=== PATIENT | female | born 1945 | race Caucasian/White ===

== ENCOUNTER 2016-05-14 10:34 | Day surgery (SDC) | payer MEDICARE, BC ==
[2016-05-11 16:02] VITALS: BMI 35.2
[2016-05-14 11:12] VITALS: RESP 16; TEMP 98.5
[2016-05-14] MEDS ORDERED: LACTATED RINGERS 1,000 ML IV ONE (11:27)
[2016-05-14] MEDS ORDERED: LIDOCAINE 1% 20 ML VIAL (10MG/ML) FOR IV START INTRADERMA ONE (11:28)
[2016-05-14] MEDS ORDERED: PROPOFOL 10 MG/ML 20 ML VIAL IV ONE (11:36)
--- NOTE | 2016-05-14 11:55 | P.PCN ---
Date of Procedure: 05/14/16 Procedure(s) Performed: Brief history: Patient is a pleasant 70-year-old white female, scheduled for an elective upper endoscopy as well as colonoscopy as a part of evaluation of epigastric pain, right lower quadrant abdominal pain and change in bowel habits for the last several months duration. Procedure performed: Esophagogastroduodenoscopy with biopsy Colonoscopy Preoperative diagnosis: Epigastric pain Right lower quadrant abdominal pain and change in bowel habits Anesthesia: MAC Procedure: After informed consent was obtained from the patient was brought into the endoscopy unit and IV conscious sedation was administered by anesthesia under continuous monitoring. Initially upper endoscopy was done. The Olympus GF 160 video endoscope was inserted inserted into the mouth and esophagus intubated without any difficulty and was gradually advanced into the stomach and duodenum and carefully examined. The bulb and second part of the duodenum appeared normal. The scope was then withdrawn into the stomach adequately insufflated with air and upon careful examination the antrum had mild gastritis and biopsies were done from this area. There are multiple small gastric polyps noted the body of the stomach which were also biopsied. The rest of the body, cardia and fundus appeared normal. The scope was then withdrawn into the esophagus. The GE junction was located at 40 cm to the incisors. It appeared regular with no erythema erosions or ulcerations. Rest of the esophagus appeared normal. Patient tolerated the procedure well. At this time the patient continued to remain sedation. Initial digital rectal examination was normal. Olympus CF 160 video colonoscope was then inserted into the rectum and gradually advanced to the cecum without any difficulty. Careful examination was performed as the scope was gradually being withdrawn. The prep was excellent. The cecum, ascending colon, transverse colon, descending colon, sigmoid colon and rectum appeared normal. scattered sigmoid diverticulosis seen. Retroflexion was performed in the rectum and no lesions were noted. Patient tolerated the procedure well. Impression: 1. Upper endoscopy revealed mild antral gastritis and multiple small gastric polyps 2. Colonoscopy revealed scattered small diverticulosis, no evidence of colorectal neoplasia. Recommendations: Findings of this examination were discussed with the patient as well as[ her family. She was advised to follow with the biopsy results. She will follow up in office in 2-3 weeks. She can have a repeat screening colonoscopy in 10 years.
[2016-05-14 12:35] VITALS: BP 106/56; PULSE 72
--- NOTE | 2016-05-18 19:56 | CDI ---
Pt Name: Anny Good CONFIDENTIAL MR#: [id number] Adm Date: 05/14/2016 10:34:00 AM Printed:05/18/2016 Physician Documentation Request Page 1 of 1 ICD-10-CM Ready Physicians Documentation Request Patient: Anny Good EPI: [id number] Account: [id number] Payer: MEDICARE Facility: [facility] Location: - Admit Date: 05/14/2016 10:34:00 AM Query Send By: Lala Vázquez Phone #: Ext. Communication Date: 05/18/2016 7:51:00 PM Clarification Outpatient By submitting this query, we are merely seeking further clarification of documentation to accurately reflect all conditions that you are monitoring, evaluating, treating or that extend the hospitalization or utilize additional resources of care. Please utilize your independent clinical judgment when addressing the question(s) below. Dear Doctor Tracey Peralta, The patients Clinical Indicators include: see below Documentation Clarification OP Your procedure note states "IV conscious sedation", yet the anesthesia record indicates GA/Unconscious sedation. This is a conflict. Which type of sedation was actually used? Please issue an addendum to your op report. Thank you. PLEASE DOCUMENT ANY ADDITIONAL DIAGNOSES AND/OR SPECIFICITY IN THE PROGRESS NOTES AND/OR DISCHARGE SUMMARY. Agreed & documented Unable to determine/unknown Disagree with the above request Need to discuss MTDD
--- NOTE | 2016-05-22 14:32 | PCN ---
ADDENDUM TO PROCEDURE NOTE: General anesthesia was utilized instead of IV conscious sedation.
== END 2016-05-14 12:51 | disposition home or self-care (01) ==
LOC: ORWHC2ENDO 10:34
PROVIDERS: ATTEND Internal Medicine Gastroenterology
DX: K29.50 Unspecified chronic gastritis without bleeding (principal); K31.7 Polyp of stomach and duodenum; K57.30 Diverticulosis of large intestine without perforation or abscess without bleeding; R19.4 Change in bowel habit; K21.9 Gastro-esophageal reflux disease without esophagitis; G47.33 Obstructive sleep apnea (adult) (pediatric); E78.5 Hyperlipidemia, unspecified; R56.9 Unspecified convulsions; F41.9 Anxiety disorder, unspecified; Z79.82 Long term (current) use of aspirin; Z79.899 Other long term (current) drug therapy; Z88.5 Allergy status to narcotic agent; Z88.2 Allergy status to sulfonamides; Z88.8 Allergy status to other drugs, medicaments and biological substances
CPT/HCPCS: 45378; 88305; 88342; 43239; J2704

== ENCOUNTER → 2016-06-09 | Outpatient (CLI) | payer MEDICARE, BC ==
--- NOTE | 2016-06-10 07:39 | MM ---
Reason for exam: screening (asymptomatic). Last mammogram was performed 1 year ago. History: Patient is postmenopausal. Family history of breast cancer in aunt and premenopausal breast cancer in cousin. Physical Findings: A clinical breast exam by your physician is recommended on an annual basis and results should be correlated with mammographic findings. MG 3D Screening Mammo W/Cad Bilateral CC and MLO view(s) were taken. Prior study comparison: May 28, 2015, bilateral MG 3d screening mammo w/cad. March 30, 2014, bilateral MG screening mammo w CAD. March 27, 2013, bilateral digital screening mammo w/CAD. There are scattered fibroglandular densities. Finding: There are few typically benign round calcifications in both breasts. There is no discrete abnormality. ASSESSMENT: Benign, BI-RAD 2 RECOMMENDATION: Routine screening mammogram of both breasts in 1 year.
== END | disposition home or self-care (01) ==
LOC: RADMAMWWP 10:47
PROVIDERS: ATTEND Obstetrics & Gynecology
DX: Z12.31 Encounter for screening mammogram for malignant neoplasm of breast (principal)
CPT/HCPCS: 77063; G0202

== ENCOUNTER → 2016-06-24 | Outpatient (CLI) | payer MEDICARE, BC ==
--- NOTE | 2016-06-24 13:56 | BD ---
EXAMINATION TYPE: MG DEXA axial skeleton. DATE OF EXAM: 06/24/2016 11:20 AM CLINICAL HISTORY: Height: 60 inches Weight: 180 FRAX RISK QUESTIONS: Alcohol (3 or more units per day): no Family History (Parent hip fracture): no Glucocorticoids (More than 3mos): no (Ex: prednisone, prednisolone, methylprednisolone, dexamethasone, and hydrocortisone). History of Fracture in Adulthood: no Secondary Osteoporosis: 1. Type 1 Diabetes: no 2. Hyperthyroidism: no 3. Menopause before 45: no 4. Malnutrition: no 5. Chronic liver disease: no Rheumatoid Arthritis: no Current Tobacco Use: no RISK FACTORS HISTORY OF: Family History of Osteoporosis: no Drink Alcohol: no Active: yes Diet low in dairy products/other sources of calcium: no Postmenopausal woman: yes Take estrogen and/or progesterone medications: no Lost more than 2 inches in height since high school: no Frequent falls: no Poor Health: no Hyperparathyroidism: no Adrenal Insufficiency: no MEDICATIONS: Prednisone or other steroids: no Thyroid Medications: no Osteoporosis Medications: no Additional Medications: Vitamin D , cholesterol meds , Dilantin Additional 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 Bone mineral density as measured about the Lumbar spine is: ----- L1-L4(G/cm2): 1.187 T Score Values are as follows: ----- L2: -0.2 ----- L3: 0.1 ----- L4: 0.0 ----- L1-L4: 0.1 Bone mineral density has: Decreased -2.0% since study of: 03/27/2013 Bone mineral density about the R hip (g/cm2): 0.885 Bone mineral density about the L hip (g/cm2): 0.874 T Score values are as follows: -----R Neck: -1.1 -----L Neck: -1.2 -----R Intertrochanter: -0.5 -----L Intertrochanter: -0.8 Bone mineral density has: Decreased -1.3% since study of: 03/27/2013 IMPRESSION: Normal (Values between +1 and -1 indicate normal bone mass) Bone density is diminished 2% from 03/27/2013 within the lumbar spine and diminished 1.3% within the b ilateral hips from 2014 NOTE: T-SCORE=SD OF THE YOUNG ADULT MEAN.
== END ==
LOC: RADBDWWP 10:23
PROVIDERS: ATTEND Psychiatry & Neurology Neurology
DX: Z78.0 Asymptomatic menopausal state (principal)
CPT/HCPCS: 77080

== ENCOUNTER → 2017-01-19 | Outpatient (CLI) | payer MEDICARE, BC ==
--- NOTE | 2017-01-19 17:58 | PN ---
PROGRESS NOTE This is an annual check up for a 71-year-old female patient who was diagnosed having symptomatic obstructive sleep apnea. The patient had moderately severe disease with an AHI of 25 and the patient was being treated with a CPAP pressure of 6 cm of water. On today's evaluation the patient is reporting occasional foul-smelling odor from her sinuses. Her humidity level is at 4 on her CPAP machine. No sinus infections. Occasional post nasal drainage. Based on the compliance data she has been using her CPAP every night. Her compliance has been 100%. Average CPAP use is 6.9 hours per night. The patient's leak factor is 28 L/minute. AHI while on treatment is down to 10.7. She has gained around 5 pounds and she used to weigh 178 and currently is up to 183. She is using an AirFit P10 nose pillow. The patient's Herald score is at 3 and she continues to benefit from the treatment. REVIEW OF SYSTEMS: 12-point review of system was done. Positive findings are mentioned above in the history of present illness. PHYSICAL EXAMINATION: Her current vital signs are as follows: Her temperature is 97.8, pulse is 88, respirations 16, BP is 147/69, saturation 96% on room air. Weight is 183, height is 5 feet 0. GENERAL APPEARANCE: Calm, comfortable. Head is atraumatic, normocephalic. NECK: Supple. There is no JVD. No goiter or neck masses. No sinus tenderness or any evidence of discharge or drainage. LUNGS: Clear to auscultation. HEART: Sounds regular rhythm. Normal S1, S2. No S3, S4. No murmurs. ABDOMEN: Soft, nontender. No organomegaly. EXTREMITIES: No edema. No cyanosis or clubbing. NEUROLOGIC: Alert and oriented x3. No focal neurological deficits. PSYCHIATRIC: Negative for anxiety or depression. Skin is negative for any wounds or ulceration. IMPRESSION: 1. Symptomatic obstructive sleep apnea, AHI of 25.8, the patient is currently on CPAP at a pressure of 6. The resulting AHI is down to 10.7, and there is some room for further improvement. 2. Hypersomnia improved. 3. Obesity with interval of 5 pounds weight gain. 4. Foul smelling drainage from the sinuses. PLAN: 1. Recommend nasal saline rinses on a daily basis. Doubt infection at this point. 2. Switch this patient to an auto set mode with a minimum pressure of 4, maximum pressure of 8 and this will allow the patient to get higher CPAP pressures if needed to bring down her AHI further. 3. Continue AirFit P10 nasal pillows. 4. Encourage weight loss. 5. See me back in 6 months for follow up or earlier if needed. MMMARTY / IJN: [id number] /
== END | disposition home or self-care (01) ==
LOC: SLEEP 16:07
PROVIDERS: ATTEND Internal Medicine Critical Care Medicine
DX: G47.33 Obstructive sleep apnea (adult) (pediatric) (principal); E66.9 Obesity, unspecified

== ENCOUNTER → 2017-06-11 | Outpatient (CLI) | payer MEDICARE, BC ==
--- NOTE | 2017-06-15 09:09 | MM ---
Reason for exam: screening (asymptomatic). Last mammogram was performed 1 year ago. History: Patient is postmenopausal. Family history of breast cancer in aunt and premenopausal breast cancer in cousin. Physical Findings: A clinical breast exam by your physician is recommended on an annual basis and results should be correlated with mammographic findings. MG 3D Screening Mammo W/Cad Bilateral CC and MLO view(s) were taken. Prior study comparison: June 09, 2016, bilateral MG 3d screening mammo w/cad. May 28, 2015, bilateral MG 3d screening mammo w/cad. There are scattered fibroglandular densities. No significant changes when compared with prior studies. ASSESSMENT: Negative, BI-RAD 1 RECOMMENDATION: Routine screening mammogram of both breasts in 1 year.
== END | disposition home or self-care (01) ==
LOC: RADMAMWWP 10:48
PROVIDERS: ATTEND Obstetrics & Gynecology
DX: Z12.31 Encounter for screening mammogram for malignant neoplasm of breast (principal); Z80.3 Family history of malignant neoplasm of breast
CPT/HCPCS: 77063; 77067

== ENCOUNTER → 2017-10-20 | Outpatient (CLI) | payer MEDICARE, BC ==
[2017-10-20 10:24] LABS: Basophils % (A) 1 %; Eosinophils % (A) 0 %; HCT 42.9 % (34.0-46.0); HGB 14.4 gm/dL (11.4-16.0); Lymphocytes # (A) 1.9 k/uL (1.0-4.8); Lymphocytes % (A) 48 %; MCH 31.7 pg (25.0-35.0); MCHC 33.6 g/dL (31.0-37.0); MCV 94.4 fL (80.0-100.0); Mean Platelet Volume 8.1; Monocytes # (A) 0.3 k/uL (0-1.0); Monocytes % (A) 7 %; Neutrophils # (A) 1.6 k/uL (1.3-7.7); Neutrophils % (A) 41 %; Platelet Count 184 k/uL (150-450); RBC 4.55 m/uL (3.80-5.40); RDW 12.9 % (11.5-15.5)
[2017-10-20 11:41] LABS: ALT 28 U/L (9-52); AST 19 U/L (14-36); Anion Gap 9 mmol/L; Blood Urea Nitrogen 12 mg/dL (7-17); Carbon Dioxide 28 mmol/L (22-30); Chloride 105 mmol/L (98-107); Glucose 106 mg/dL (74-99); Potassium 4.3 mmol/L (3.5-5.1); Sodium 142 mmol/L (137-145)
[2017-10-20 13:29] LABS: Phenytoin (Dilantin) 23.7 ug/mL
== END | disposition home or self-care (01) ==
LOC: LABWHC1 09:41
PROVIDERS: ATTEND Psychiatry & Neurology Neurology
DX: G40.909 Epilepsy, unspecified, not intractable, without status epilepticus (principal); T42.0X5A Adverse effect of hydantoin derivatives, initial encounter
CPT/HCPCS: 36415; 80048; 80185; 84450; 84460; 85025

== ENCOUNTER → 2017-10-25 | Outpatient (CLI) | payer MEDICARE, BC ==
[2017-10-26 03:24] LABS: Phenytoin (Dilantin) Free 1.4 ug/mL (0.8-2.0)
== END | disposition home or self-care (01) ==
LOC: LABWHC1 10:23
PROVIDERS: ATTEND Psychiatry & Neurology Neurology
DX: Z51.81 Encounter for therapeutic drug level monitoring (principal); G40.909 Epilepsy, unspecified, not intractable, without status epilepticus
CPT/HCPCS: 36415; 80168; 80185; 80186

== ENCOUNTER → 2017-11-08 | Outpatient (CLI) | payer MEDICARE, BC ==
[2017-11-08 10:08] LABS: Basophils % (A) 1 %; Eosinophils % (A) 0 %; HCT 41.8 % (34.0-46.0); HGB 13.8 gm/dL (11.4-16.0); Lymphocytes # (A) 1.8 k/uL (1.0-4.8); Lymphocytes % (A) 45 %; MCHC 33.1 g/dL (31.0-37.0); MCV 93.5 fL (80.0-100.0); Mean Platelet Volume 8.1; Monocytes # (A) 0.2 k/uL (0-1.0); Monocytes % (A) 5 %; Neutrophils # (A) 1.9 k/uL (1.3-7.7); Neutrophils % (A) 47 %; Platelet Count 183 k/uL (150-450); RBC 4.47 m/uL (3.80-5.40); RDW 12.8 % (11.5-15.5); WBC 4.1 k/uL (3.8-10.6)
[2017-11-08 10:26] LABS: ALT 30 U/L (9-52); AST 20 U/L (14-36); Anion Gap 10 mmol/L; Blood Urea Nitrogen 11 mg/dL (7-17); Calcium 9.3 mg/dL (8.4-10.2); Carbon Dioxide 25 mmol/L (22-30); Chloride 106 mmol/L (98-107); Glucose 159 mg/dL (74-99); Phenytoin (Dilantin) 7.7 ug/mL; Potassium 3.8 mmol/L (3.5-5.1); Sodium 141 mmol/L (137-145)
== END | disposition home or self-care (01) ==
LOC: LABWHC1 09:29
PROVIDERS: ATTEND Psychiatry & Neurology Neurology
DX: G40.909 Epilepsy, unspecified, not intractable, without status epilepticus (principal); T42.0X5A Adverse effect of hydantoin derivatives, initial encounter
CPT/HCPCS: 36415; 80048; 80185; 84450; 84460; 85025

== ENCOUNTER → 2018-02-10 | Outpatient (CLI) | payer MEDICARE, BC | END | disposition home or self-care (01) | LOC: LABWHC1 09:56 | PROVIDERS: ATTEND Psychiatry & Neurology Neurology | DX: G40.909 Epilepsy, unspecified, not intractable, without status epilepticus (principal) | CPT/HCPCS: 36415; 80185; 80186 ==

== ENCOUNTER → 2018-07-22 | Outpatient (CLI) | payer MEDICARE, BC ==
--- NOTE | 2018-07-22 15:12 | BD ---
EXAMINATION TYPE: Axial Bone Density DATE OF EXAM: 07/22/2018 COMPARISON: 06/24/2016 CLINICAL HISTORY: Height: 60 IN Weight: 185 LBS RISK FACTORS HISTORY OF: Active: YES Postmenopausal woman: AGE 54 Take estrogen and/or progesterone medications: NOT NOW How long: AGE 49-52 MEDICATIONS: Additional Medications: VIT D, DILANTIN, ETHOSUXIMIDE, SERTRALINE, ROSUVASTATIN, LORAZEPAM, COQ10,OME PRAZOLE, ASPIRIN, EXAM MEASUREMENTS: Bone mineral densitometry was performed using the [employer] System. Bone mineral density as measured about the Lumbar spine is: ----- L1-L4(G/cm2): 1.166 T Score Values are as follows: ----- L2: 0.0 ----- L3: -0.3 ----- L4: -0.4 ----- L1-L4: -0.1 Bone mineral density has: Decreased -1.9% since study of: 06/24/2016 Bone mineral density about the R hip (g/cm2): 0.881 Bone mineral density about the L hip (g/cm2): 0.842 T Score values are as follows: -----R Neck: -1.1 -----L Neck: -1.4 -----R Total: -0.1 -----L Total: -0.3 Bone mineral density has: Increased 0.3% since study of: 06/24/2016 IMPRESSION: Osteopenia (T Score between -2.5 and -1). There is slightly increased risk of fracture and the patient may be considered for treatment. Re-Screen 2-5 years. NOTE: T-SCORE=SD OF THE YOUNG ADULT MEAN.
--- NOTE | 2018-07-26 11:22 | MM ---
Reason for exam: screening (asymptomatic). Last mammogram was performed 1 year and 1 month ago. History: Patient is postmenopausal. Family history of breast cancer in aunt and premenopausal breast cancer in cousin. Physical Findings: A clinical breast exam by your physician is recommended on an annual basis and results should be correlated with mammographic findings. MG 3D Screening Mammo W/Cad Bilateral CC and MLO view(s) were taken. Prior study comparison: June 11, 2017, bilateral MG 3d screening mammo w/cad. June 09, 2016, bilateral MG 3d screening mammo w/cad. There are benign appearing round calcifications bilaterally. There is chronic nodularity in the right breast. There is no discrete abnormality. ASSESSMENT: Benign, BI-RAD 2 RECOMMENDATION: Routine screening mammogram of both breasts in 1 year.
== END | disposition home or self-care (01) ==
LOC: RADMAMWWP 10:12
PROVIDERS: ATTEND Obstetrics & Gynecology
DX: Z12.31 Encounter for screening mammogram for malignant neoplasm of breast (principal); M85.851 Other specified disorders of bone density and structure, right thigh; M85.852 Other specified disorders of bone density and structure, left thigh
CPT/HCPCS: 77063; 77067; 77080

== ENCOUNTER → 2019-09-19 | Outpatient (CLI) | payer MEDICARE, BC ==
--- NOTE | 2019-09-20 08:41 | MM ---
Reason for exam: screening (asymptomatic). Last mammogram was performed 1 year and 2 months ago. History: Patient is postmenopausal and history of other cancer. Family history of breast cancer in aunt and premenopausal breast cancer in cousin. Took hormonal contraceptives for 1 month. Took estrogen for 3 years. Took progesterone for 3 years. Physical Findings: A clinical breast exam by your physician is recommended on an annual basis and results should be correlated with mammographic findings. MG 3D Screening Mammo W/Cad Bilateral CC and MLO view(s) were taken. Prior study comparison: July 22, 2018, bilateral MG 3d screening mammo w/cad. June 11, 2017, bilateral MG 3d screening mammo w/cad. There are scattered fibroglandular densities. There are benign appearing round calcifications bilaterally. There is no discrete abnormality. Right skin lesion redemonstrated. ASSESSMENT: Benign, BI-RAD 2 RECOMMENDATION: Routine screening mammogram of both breasts in 1 year.
== END | disposition home or self-care (01) ==
LOC: RADMAMWWP 10:55
PROVIDERS: ATTEND Obstetrics & Gynecology
DX: Z12.31 Encounter for screening mammogram for malignant neoplasm of breast (principal)
CPT/HCPCS: 77063; 77067

== ENCOUNTER → 2020-10-28 | Outpatient (CLI) | payer MEDICARE, BC ==
--- NOTE | 2020-10-28 14:05 | BD ---
EXAMINATION TYPE: Axial Bone Density DATE OF EXAM: 10/28/2020 COMPARISON: 07/22/2018 CLINICAL HISTORY: Height: 59.5 IN Weight: 193 LBS RISK FACTORS HISTORY OF: Active: MODERATE Postmenopausal woman: AGE 55 Take estrogen and/or progesterone medications: NOT NOW AGE 50-53 MEDICATIONS: Additional Medications: VIT D, DILANTIN, EPILEPSY MEDS, CRESTOR, CHOLESTEROL MEDS, ANXIETY MEDS, AMBI EN, ASPIRIN, EXAM MEASUREMENTS: Bone mineral densitometry was performed using the [employer] System. Bone mineral density as measured about the Lumbar spine is: ----- L1-L4(G/cm2): 1.185 T Score Values are as follows: ----- L2: 0.2 ----- L3: -0.1 ----- L4: -0.4 ----- L1-L4: 0.0 Bone mineral density has: Increased 1.0% since study of: 07/22/2018 Bone mineral density about the R hip (g/cm2): 0.886 Bone mineral density about the L hip (g/cm2): 0.937 T Score values are as follows: -----R Neck: -1.1 -----L Neck: -0.7 -----R Total: -0.2 -----L Total: -0.1 Bone mineral density has: Increased 0.6% since study of: 07/22/2018 IMPRESSION: No evidence for osteoporosis or osteopenia NOTE: T-SCORE=SD OF THE YOUNG ADULT MEAN.
--- NOTE | 2020-10-30 11:18 | MM ---
Reason for exam: screening (asymptomatic). Last mammogram was performed 1 year and 1 month ago. History: Patient is postmenopausal and history of other cancer. Family history of breast cancer in aunt and premenopausal breast cancer in cousin. Took hormonal contraceptives for 1 month. Took estrogen for 3 years. Took progesterone for 3 years. Physical Findings: A clinical breast exam by your physician is recommended on an annual basis and results should be correlated with mammographic findings. MG 3D Screening Mammo W/Cad Bilateral CC and MLO view(s) were taken. Prior study comparison: September 19, 2019, bilateral MG 3d screening mammo w/cad. July 22, 2018, bilateral MG 3d screening mammo w/cad. June 11, 2017, bilateral MG 3d screening mammo w/cad. Focal asymmetry right subareolar, more nodular. Not seen on MLO, may be summation. ASSESSMENT: Incomplete: need additional imaging evaluation, BI-RAD 0 RECOMMENDATION: Special view mammogram of the right breast. If lesion persists on supplemental views, image directed ultrasound is recommended. [facility] will attempt to contact patient to return for supplemental views and ultrasound if indicated.
== END | disposition home or self-care (01) ==
LOC: RADMAMWWP 08-09 12:33 → RADBDWWP 12:39
PROVIDERS: ATTEND Obstetrics & Gynecology
DX: Z12.31 Encounter for screening mammogram for malignant neoplasm of breast (principal); N85.9 Noninflammatory disorder of uterus, unspecified; Z78.0 Asymptomatic menopausal state; Z80.3 Family history of malignant neoplasm of breast
CPT/HCPCS: 77063; 77067; 77080

== ENCOUNTER → 2020-11-01 | Outpatient (CLI) | payer MEDICARE, BC ==
--- NOTE | 2020-11-01 11:03 | MM ---
Reason for exam: additional evaluation requested from abnormal screening. Last mammogram was performed less than 1 month ago. History: Patient is postmenopausal and history of other cancer. Family history of breast cancer in aunt and premenopausal breast cancer in cousin. Took hormonal contraceptives for 1 month. Took estrogen for 3 years. Took progesterone for 3 years. Physical Findings: Nurse did not find any significant physical abnormalities on exam. MG 3D Work Up W/Cad RT Spot compression CC and LM view(s) were taken of the right breast. Prior study comparison: October 28, 2020, bilateral MG 3d screening mammo w/cad. There are scattered fibroglandular densities. There is no discrete abnormality including area of concern subareolar. No significant new findings when compared with previous films. These results were verbally communicated with the patient and result sheet given to the patient on 11/01/20. ASSESSMENT: Benign, BI-RAD 2 RECOMMENDATION: Return to routine screening mammogram schedule for both breasts.
== END | disposition home or self-care (01) ==
LOC: RADMAMWWP 09:35
PROVIDERS: ATTEND Obstetrics & Gynecology
DX: N64.89 Other specified disorders of breast (principal); Z78.0 Asymptomatic menopausal state; Z85.9 Personal history of malignant neoplasm, unspecified; Z80.3 Family history of malignant neoplasm of breast; Z79.3 Long term (current) use of hormonal contraceptives
CPT/HCPCS: 77065; G0279; 77061

== ENCOUNTER → 2021-11-14 | Outpatient (CLI) | payer MEDICARE, BC ==
--- NOTE | 2021-11-18 08:47 | MM ---
Reason for Exam: Screening (asymptomatic). Last mammogram was performed 1 year(s) and 1 month(s) ago. Patient History: Menarche at age 13. First Full-Term at age 20. Postmenopausal. Other cancer. Patient used Estrogen for 3 years. Patient used Progesterone for 3 years. Hormonal Contraceptives for 1 month. Maternal cousin had breast cancer, age 40. Maternal aunt had breast cancer, age 80. Risk Values: Daysi 5 year model risk: 1.4%. NCI Lifetime model risk: 3.2%. Prior Study Comparison: 09/19/2019 Bilateral Screening Mammogram, [facility]. 10/28/2020 Bilateral Screening Mammogram, [facility]. 11/01/2020 Right Diagnostic Mammogram, [facility]. Tissue Density: The breast tissue is almost entirely fat. Findings: Analyzed By CAD. There is no suspicious group of microcalcifications or new suspicious mass in either breast. Overall Assessment: Negative, BI-RAD 1 Management: Screening Mammogram of both breasts in 1 year. A clinical breast exam by your physician is recommended on an annual basis and results should be correlated with mammographic findings. [facility] will attempt to contact patient to return for supplemental views and ultrasound if indicated. Electronically signed and approved by: Lito Cortes DO
== END | disposition home or self-care (01) ==
LOC: RADMAMWWP 16:24
PROVIDERS: ATTEND Obstetrics & Gynecology
DX: Z12.31 Encounter for screening mammogram for malignant neoplasm of breast (principal); Z78.0 Asymptomatic menopausal state; Z80.3 Family history of malignant neoplasm of breast; Z85.89 Personal history of malignant neoplasm of other organs and systems
CPT/HCPCS: 77063; 77067

== ENCOUNTER → 2022-11-16 | Outpatient (CLI) | payer MEDICARE, BC ==
--- NOTE | 2022-11-18 18:01 | MM ---
Reason for Exam: Screening (asymptomatic). Last screening mammogram was performed 12 month(s) ago. Patient History: Menarche at age 13. First Full-Term at age 20. Postmenopausal. Other cancer. Patient used Estrogen for 3 years. Patient used Progesterone for 3 years. Hormonal Contraceptives for 1 month. Maternal cousin had breast cancer, age 40. Maternal aunt had breast cancer, age 80. Risk Values: Daysi 5 year model risk: 1.4%. NCI Lifetime model risk: 3.0%. Prior Study Comparison: 10/28/2020 Bilateral Screening Mammogram, [facility]. 11/01/2020 Right Diagnostic Mammogram, [facility]. 11/14/2021 Bilateral MG 3D screening mammo w/cad, [facility]. Tissue Density: There are scattered fibroglandular densities. Findings: Analyzed By CAD. Pattern appears symmetrical and stable. No significant interval change is evident. Benign vascular calcification is present bilaterally. No suspicious groups of microcalcifications, spiculated or lobular masses, architectural distortion or other secondary signs of malignancy are mammographically apparent. Overall Assessment: Benign, BI-RAD 2 Management: Screening Mammogram of both breasts in 1 year. A negative mammogram report should not preclude additional follow up of suspicious palpable abnormalities. Patient should continue monthly self breast exam. A clinical breast exam by your physician is recommended on an annual basis and results should be correlated with mammographic findings. Electronically signed and approved by: Liu Delacruz D.O. Radiologis
== END | disposition home or self-care (01) ==
LOC: RADMAMWWP 16:20
PROVIDERS: ATTEND Obstetrics & Gynecology
DX: Z12.31 Encounter for screening mammogram for malignant neoplasm of breast (principal); Z78.0 Asymptomatic menopausal state; Z80.3 Family history of malignant neoplasm of breast
CPT/HCPCS: 77063; 77067

== ENCOUNTER → 2023-08-25 | Outpatient (CLI) | payer MEDICARE, BC ==
--- NOTE | 2023-08-25 14:09 | MR ---
EXAMINATION TYPE: MR lumbar spine wo con DATE OF EXAM: 08/25/2023 COMPARISON: 11/20/1959 HISTORY: Lumbar pain going down right side TECHNIQUE: Multiplanar, multisequence images of the lumbar spine were acquired without IV contrast. L1-L2: Normal disc appearance without desiccation. No herniation, protrusion or disc bulging. No ca nal stenosis is present. Foramina are patent bilaterally. L2-L3: Normal disc appearance without desiccation. No herniation, protrusion or disc bulging. No ca nal stenosis is present. Foramina are patent bilaterally. L3-L4: Mild disc desiccation with posterior disc bulge. Mild effacement ventral thecal sac. No eviden ce for central stenosis or herniation. Foramina are patent bilaterally. L4-L5: Moderate disc desiccation. Moderate posterior disc bulge with hypertrophy ligamentum flavum an d facet joint arthropathy resulting in progressive severe central stenosis. There is mild bilateral f oraminal encroachment left greater than right. L5-S1: Normal disc appearance without desiccation. No herniation, protrusion or disc bulging. No ca nal stenosis is present. Foramina are patent bilaterally. Lumbar segments are intact. No paraspinal masses are identified. Conus medullaris has a normal appe arance. 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
== END | disposition home or self-care (01) ==
LOC: RADMRIMAIN 13:00
PROVIDERS: ATTEND Orthopaedic Surgery
DX: M47.816 Spondylosis without myelopathy or radiculopathy, lumbar region (principal); M48.061 Spinal stenosis, lumbar region without neurogenic claudication
CPT/HCPCS: 72148

== ENCOUNTER 2023-09-13 09:42 | Emergency (ER) | payer MEDICARE, BC ==
--- NOTE | 2023-09-13 10:13 | ED ---
Skin/Abscess/FB HPI - General Chief complaint: Skin/Abscess/Foreign Body Stated complaint: Rash Time Seen by Provider: 09/13/23 09:53 Source: patient, RN notes reviewed, old records reviewed Mode of arrival: ambulatory Limitations: no limitations - History of Present Illness Initial comments: This is a 78-year-old female to the ER for evaluation today. Patient [place] for evaluation of significant hives reaction that has been persistent despite outpatient treatment patient has no shortness of breath or difficulty breathing no neck swelling MD complaint: rash -: week(s) Severity: moderate Severity scale (1-10): 5 Consistency: constant Improves with: none Worsens with: none Context: none Associated symptoms: itching Treatments Prior to Arrival: none - Related Data Home Medications Medication Instructions Recorded Confirmed Aspirin 81 mg PO DAILY 11/27/13 05/14/16 Ethosuximide [Zarontin] 250 mg PO HS 11/27/13 05/14/16 Ezetimibe [Zetia] 10 mg PO DAILY 11/27/13 05/14/16 LORazepam [Ativan] 0.5 mg PO HS 11/27/13 05/14/16 Omeprazole [PriLOSEC] 20 mg PO AC-BRKFST 11/27/13 05/14/16 Phenytoin Sodium Extended 200 mg PO BID 11/27/13 05/14/16 [Dilantin] Rosuvastatin Calcium [Crestor] 10 mg PO DAILY 11/27/13 05/14/16 Cholecalciferol [Vitamin D3] 2,000 unit PO DAILY 05/11/16 05/14/16 Multivitamins, Thera [Multivitamin] 1 tab PO DAILY 05/11/16 05/14/16 Previous Rx's Medication Instructions Recorded Famotidine [Pepcid] 40 mg PO BID #28 tablet 09/13/23 dexAMETHasone [Decadron] 6 mg PO TID #15 tablet 09/13/23 hydrOXYzine HCL [Atarax] 50 mg PO TID PRN #30 tab 09/13/23 Allergies Allergy/AdvReac Type Severity Reaction Status Date / Time codeine AdvReac Rash/Hives Verified 09/13/23 09:45 ibuprofen AdvReac Rash/Hives Verified 09/13/23 09:45 lacosamide [From Vimpat] AdvReac Rash/Hives Verified 09/13/23 09:45 lamotrigine [From Lamictal] AdvReac Rash/Hives Verified 09/13/23 09:45 levetiracetam [From Keppra] AdvReac Rash/Hives Verified 09/13/23 09:45 oxcarbazepine AdvReac Rash/Hives Verified 09/13/23 09:45 [From Trileptal] Sulfa (Sulfonamide AdvReac Rash/Hives Verified 09/13/23 09:45 Antibiotics) Review of Systems ROS Statement: Those systems with pertinent positive or pertinent negative responses have been documented in the HPI. ROS Other: All systems not noted in ROS Statement are negative. Past Medical History Past Medical History: GERD/Reflux, Hyperlipidemia, Osteoarthritis (OA), Seizure Disorder, Thyroid Disorder Additional Past Medical History / Comment(s): prev. petit mals;Barretts, hx rapid beat, back pain- degenerative disc disease History of Any Multi-Drug Resistant Organisms: None Reported Past Surgical History: Section, Cholecystectomy Additional Past Surgical History / Comment(s): colonoscopy,egd Past Anesthesia/Blood Transfusion Reactions: No Reported Reaction Smoking Status: Never smoker Past Alcohol Use History: None Reported Past Drug Use History: None Reported - Past Family History Father Family Medical History: Cancer, Deep Vein Thrombosis (DVT) Additional Family Medical History / Comment(s): myeloma dysplastic syndrome General Exam - General Exam Comments Initial Comments: Acute urticarial rash of both upper extremities upper left hives reaction Limitations: no limitations General appearance: alert, in no apparent distress Head exam: Present: atraumatic, normocephalic, normal inspection Eye exam: Present: normal appearance, PERRL, EOMI. Absent: scleral icterus, conjunctival injection, periorbital swelling ENT exam: Present: normal exam, mucous membranes moist Neck exam: Present: normal inspection. Absent: tenderness, meningismus, lymphadenopathy Respiratory exam: Present: normal lung sounds bilaterally. Absent: respiratory distress, wheezes, rales, rhonchi, stridor Cardiovascular Exam: Present: regular rate, normal rhythm, normal heart sounds. Absent: systolic murmur, diastolic murmur, rubs, gallop, clicks GI/Abdominal exam: Present: soft, normal bowel sounds. Absent: distended, tenderness, guarding, rebound, rigid Extremities exam: Present: normal inspection, full ROM, normal capillary refill. Absent: tenderness, pedal edema, joint swelling, calf tenderness Back exam: Present: normal inspection Neurological exam: Present: alert, oriented X3, CN II-XII intact Psychiatric exam: Present: normal affect, normal mood Skin exam: Present: warm, dry, intact, normal color, urticaria. Absent: rash Course Vital Signs 09/13/23 09:43 Temperature 98.2 F Pulse Rate 104 H Respiratory 20 Rate Blood Pressure 138/59 O2 Sat by Pulse 96 Oximetry - Reevaluation(s) Reevaluation #1: 09/13/23 10:10 Medical records reviewed Reevaluation #2: 09/13/23 10:10 Patient symptoms improving here in the ER Reevaluation #3: 09/13/23 10:10 Patient informed of results and questions answered Reevaluation #4: Was pt. sent in by a medical professional or institution (, [facility]IT[facility], EVP MANAGING DIRECTOR, urgent care, hospital, or [facility]...) When possible be specific @ -no Did you speak to anyone other than the patient for history (EMS, parent, family, police, friend...)? What history was obtained from this source @ -no Did you review nursing and triage notes (agree or disagree)? Why? @ -agree Are old charts reviewed (outside hosp., previous admission, EMS record, old EKG, old radiological studies, urgent care reports/EKG's, [facility] records)? Report findings @ -yes Differential Diagnosis (chest pain, altered mental status, abdominal pain women, abdominal pain men, vaginal bleeding, weakness, fever, dyspnea, syncope, headache, dizziness, GI bleed, back pain, seizure, CVA, palpatations, mental health, musculoskeletal)? @ -prior EKG interpreted by me (3pts min.). @ -yes X-rays interpreted by me (1pt min.). @ -yes negative for acute disease CT interpreted by me (1pt min.). @ -no U/S interpreted by me (1pt. min.). @ -no What testing was considered but not performed or refused? (CT, X-rays, U/S, labs)? Why? @ -none What meds were considered but not given or refused? Why? @ -none Did you discuss the management of the patient with other professionals (professionals i.e. Dr., PA, EVP MANAGING DIRECTOR, lab, RT, psych nurse, director of social work, supervisor steno pool, teacher, front desk officer, case folder)? Give summary @ -no Was smoking cessation discussed for >3mins.? @ -no Was critical care preformed (if so, how long)? @ -no Were there social determinants of health that impacted care today? How? (Homelessness, low income, unemployed, alcoholism, drug addiction, transportation, low edu. Level, literacy, decrease access to med. care, [facility], rehab)? @ -none Was there de-escalation of care discussed even if they declined (Discuss DNR or withdrawal of care, Hospice)? DNR status @ -no What co-morbidities impacted this encounter? (DM, HTN, Smoking, COPD, CAD, Cancer, CVA, ARF, Chemo, Hep., AIDS, mental health diagnosis, sleep apnea, morbid obesity)? @ -none Was patient admitted / discharged? Hospital course, mention meds given and route, prescriptions, significant lab abnormalities, going to OR and other pertinent info. @ - Undiagnosed new problem with uncertain prognosis? @ -no Drug Therapy requiring intensive monitoring for toxicity (Heparin, Nitro, Insulin, Cardizem)? @ -no Were any procedures done? @ -no Diagnosis/symptom? @ - Acute, or Chronic, or Acute on Chronic? @ -Acute Uncomplicated (without systemic symptoms) or Complicated (systemic symptoms)? @ -Complicated Side effects of treatment? @ -no Exacerbation, Progression, or Severe Exacerbation? @ -exacerbation Poses a threat to life or bodily function? How? (Chest pain, USA, CA, pneumonia, PE, COPD, DKA, ARF, appy, cholecystitis, CVA, Diverticulitis, Homicidal, Suicidal, threat to staff... and all critical care pts) @ -yes Medical Decision Making - Medical Decision Making 78 female to ER for significant allergic reaction urticarial reaction, patient given topical steroids and steroid treatment here in the ER with antihistamines and can be discharged home Disposition Clinical Impression: Allergic urticaria Disposition: HOME SELF-CARE Condition: Good Instructions (If sedation given, give patient instructions): Urticaria (ED) Prescriptions: dexAMETHasone [Decadron] 6 mg PO TID #15 tablet Is patient prescribed a controlled substance at d/c from ED?: No Referrals: Joshua Dean MD [Primary Care Provider] - 1-2 days Time of Disposition: 10:00
[2023-09-13] MEDS: TRIAMCINOLONE ACET 0.5% CREAM 15 GM TUBE TOPICAL SCH (10:32)
[2023-09-13] MEDS: DEXAMETHASONE SOD PHOSPHATE 10 MG/ML 1 ML VIAL IM STA (10:32)
[2023-09-13] MEDS: FAMOTIDINE 20 MG TAB PO STA (10:32)
[2023-09-13] MEDS: hydrOXYzine HCL 25 MG TAB PO ONE (10:33)
[2023-09-13 10:54] VITALS: BP 124/68; PULSE 86; RESP 18; TEMP 98.4
== END 2023-09-13 11:05 | disposition home or self-care (01) ==
LOC: EC 09:42
DX: L50.0 Allergic urticaria (principal); Z88.5 Allergy status to narcotic agent; Z88.2 Allergy status to sulfonamides; Z88.8 Allergy status to other drugs, medicaments and biological substances
CPT/HCPCS: 99282; 96372; J1100

== ENCOUNTER → 2024-03-20 | Outpatient (CLI) | payer MEDICARE, BC ==
--- NOTE | 2024-03-20 15:43 | MM ---
Reason for Exam: Screening (asymptomatic). Last mammogram was performed 1 year(s) and 4 month(s) ago. Patient History: Menarche at age 13. First Full-Term at age 20. Postmenopausal. Other cancer. Patient used Estrogen for 3 years. Patient used Progesterone for 3 years. Hormonal Contraceptives for 1 month. Maternal cousin had breast cancer, age 40. Maternal aunt had breast cancer, age 80. Risk Values: Daysi 5 year model risk: 1.4%. NCI Lifetime model risk: 2.8%. Prior Study Comparison: 11/01/2020 Right Diagnostic Mammogram, [facility]. 11/14/2021 Bilateral MG 3D screening mammo w/cad, [facility]. 11/16/2022 Bilateral MG 3D screening mammo w/cad, [facility]. Tissue Density: There are scattered areas of fibroglandular density. Findings: Analyzed By CAD. There is no suspicious group of microcalcifications or new suspicious mass in either breast. Overall Assessment: Negative, BI-RAD 1 Management: Screening Mammogram of both breasts in 1 year. Patient should continue monthly self-breast exams. A clinical breast exam by your physician is recommended on an annual basis. This exam should not preclude additional follow-up of suspicious palpable abnormalities. Note on Daysi scores and lifetime risk: 1. A Daysi score greater than 3% is considered moderate risk. If this is the case, consider specialist referral to assess eligibility for a risk reducing agent. 2. If overall lifetime risk for the development of breast cancer is 20% or higher, the patient may qualify for future screening with alternating mammogram and breast MRI. [facility], , 03/20/2024 3:40 PM. Electronically signed and approved by: Maxi Clifford M.D. Radiologist
== END | disposition home or self-care (01) ==
LOC: RADMAMWWP 11:48
PROVIDERS: ATTEND Family Medicine
DX: Z12.31 Encounter for screening mammogram for malignant neoplasm of breast (principal); Z78.0 Asymptomatic menopausal state; Z80.3 Family history of malignant neoplasm of breast; R92.323 Mammographic fibroglandular density, bilateral breasts
CPT/HCPCS: 77063; 77067